=== PATIENT | male | born 1995 | race Caucasian/White ===

== ENCOUNTER 2020-07-11 23:44 | Emergency (ER) | payer SELFPAY ==
[~2020-07-11] VITALS: Ht 175.3 cm; Wt 70.3 kg
[2020-07-11 23:55] VITALS: BP_SYST 138
--- NOTE | 2020-07-11 23:55 | NUR ---
Patient to ER bed 4 to gown for evaluation. Side rails up. Report given to TASHA.
--- NOTE | 2020-07-12 00:03 | NUR ---
PT A&O X4 C/O OF RIGHT KNEE PAIN AFTER RUNNING AND MISSTEPPING EARLIER TODAY. PT REPORTS FRACTURING HIS RIGHT KNEE 2 YEARS AGO DOWN THE MIDDLE. PT STATES THE PAIN IS 8/10 ACHING AND THROBBING. PT DENIES TAKING ANY PAIN MEDICATION TODAY. PT ABLE TO AMBULATE WITH LIMP.
--- NOTE | 2020-07-12 00:05 | NUR ---
ER Dr. ROGER at bedside examining patient.
[2020-07-12] MEDS ORDERED: KETOROLAC TROMETHAMINE 60 MG/2 ML VIAL IM ONE (00:15)
--- NOTE | 2020-07-12 00:24 | NUR ---
PT REFUSED TORADOL 60MG IM. MD AWARE. WILL UPDATE ORDERS.
--- NOTE | 2020-07-12 00:26 | NUR ---
LABORATORY AT BEDSIDE FOR BLOOD DRAW.
[2020-07-12] MEDS ORDERED: IBUPROFEN 800 MG TABLET PO ONE (00:30)
[2020-07-12 00:40] LABS: BASOPHILS % (AUTO) 0.4 % (0.0-2.0); EOSINOPHILS # (AUTO) 0.1 K/uL (0.0-0.4); MONOCYTES # (AUTO) 0.7 K/uL (0.0-1.0); MONOCYTES % (AUTO) 7.8 % (1.7-9.3)
[2020-07-12 00:42] LABS: EOSINOPHILS % (AUTO) 0.5 % (0.0-4.0); HEMATOCRIT 42.9 % (36-54); LYMPHOCYTES # (AUTO) 2.4 K/uL (1.0-5.5); LYMPHOCYTES % (AUTO) 25.3 % (20.5-51.5); MEAN CORPUSCULAR HEMOGLOBIN 33 pg (27-31); MEAN CORPUSCULAR HGB CONC 35 % (32-36); MEAN CORPUSCULAR VOLUME 94 fL (79.0-98.0); NEUTROPHILS # (AUTO) 6.2 K/uL (1.8-7.7); PLATELET COUNT (AUTO) 186 K/uL (130-430); RED BLOOD CELL COUNT(AUTO) 4.58 MIL/uL (4.2-6.2); RED CELL DISTRIBUTION WIDTH 12.7 % (9.0-15.0); WHITE BLOOD COUNT (AUTO) 9.4 K/uL (4.8-10.8)
--- NOTE | 2020-07-12 00:53 | NUR ---
RADIOLOGY AT BEDSIDE FOR XRAY.
[2020-07-12 01:15] VITALS: BP_SYST 138
--- NOTE | 2020-07-12 01:15 | NUR ---
Patient given written and verbal discharge instructions and verbalizes understanding. DR. ACACIA MARINA MD discussed with patient the results and treatment provided. Patient in stable condition. ID arm band removed. Rx of NORCO AND IBUPROFEN given. Patient educated on pain management and to follow up with PMD. Pain Scale 0/10. Opportunity for questions provided and answered. Medication side effect fact sheet provided.
== END 2020-07-12 01:15 | disposition home or self-care (01) ==
LOC: SED 23:44
DX: S83.8X1A Sprain of other specified parts of right knee, initial encounter (principal); W01.0XXA Fall on same level from slipping, tripping and stumbling without subsequent striking against object, initial encounter; Y93.89 Activity, other specified; Y92.89 Other specified places as the place of occurrence of the external cause; Y99.8 Other external cause status
CPT/HCPCS: 36415; 73564; 85025; 99284